=== PATIENT | male | born 1960 | race Caucasian/White ===

== ENCOUNTER → 2020-07-13 00:30 | Outpatient (CLI) | payer OTHER, SELFPAY ==
[2020-07-13 18:03] LABS: SARS-CoV-2 RNA PCR Negative
== END ==
PROVIDERS: PCP Family Medicine; Visit Provider Internal Medicine Gastroenterology
DX: Z01.812 Encounter for preprocedural laboratory examination (principal); Z20.822 Contact with and (suspected) exposure to COVID-19
CPT/HCPCS: C9803; U0003; U0005

== ENCOUNTER 2020-07-16 00:15 | Day surgery (SDC) | payer OTHER, SELFPAY ==
[2020-07-03 13:51] VITALS: BMI 37.4
--- NOTE | 2020-07-15 13:39 | WPDANESEPPF ---
Anes - Initial Pre Proc Eval Procedure: Operation Date: 07/16/20 07:30 Proposed Procedures p Screening Colonoscopy - Jairo Mejía DO Date/Time: 07/15/20 13:39 Surgeon: Jairo Mejía DO Pre Op Diagnosis: Neoplasm Screening Patient Data Age: 60 Gender: M Height: 5 ft 7 in Weight: 108.5 kg Allergies Allergy/AdvReac Type Severity Reaction Status Date / Time clindamycin Allergy Unknown Pruritic Verified 07/16/20 06:13 rash Home Medications Medication Instructions Recorded Confirmed Type albuterol sulfate 90 mcg/actuation 1 puff INHALATION Q4H PRN 05/10/19 07/03/20 History aerosol inhaler fluticasone propionate 50 2 spray NASAL DAILY 05/10/19 07/03/20 History mcg/actuation nasal spray,suspension atenolol [Tenormin] 50 mg PO DAILY 07/03/20 07/16/20 History diclofenac sodium 75 mg PO DAILY 07/03/20 07/16/20 History eszopiclone [Lunesta] 2 mg PO .qhs 07/03/20 07/16/20 History sildenafil [Viagra] 100 mg PO DAILY PRN 07/03/20 07/03/20 History Patient hx anesthesia problems: none Family hx anesthesia problems: none PMFSH Past Medical History Medical History (Updated 07/15/20 @ 13:39 by Rashid Gale MD) Essential (primary) hypertension Mitral valve prolapse ZITA on CPAP Family History Family History Mother Patient's mother is in good health Social History Social History Years smoked: 20 Smoking status: Light tobacco smoker Tobacco type: cigarettes Second hand tobacco smoke exposure: No Alcohol intake: never Substance use: never Substance use type: does not use Living arrangements: with family Gender identity (if verbalized by the patient): Male Sexual Orientation (if Verbalized by the Patient): Straight or Heterosexual Spiritual care concerns: No Anes - Eval Final PreProcedure Day of Procedure 07/15/20 13:39 Patient weight: obese Heart: regular rate and rhythm Lungs: clear to auscultation Airway: Mallampati scale class III Neurological: alert and oriented Last oral intake: >/= 8 hours ASA classification: III Emergent: no Anesthetic plan: proceed Anesthesia type and monitoring: general GIVS and standard monitoring Informed Consent: The patient's anesthetic plan and its attendant risks and benefits were discussed with the patient/family/POA. Questions were solicited and answers provided to the satisfaction of the patient/family/POA.
[2020-07-16 06:14] VITALS: BP 124/70; PULSE 77; RESP 18; TEMP 36.1; O2SAT 98
[2020-07-16] MEDS: LACTATED RINGERS 1,000 ML 150 ML IV CONT (06:22)
--- NOTE | 2020-07-16 07:26 | WPDGICN ---
GI Consult Note Consult date/time: 07/16/20 07:26 HPI: Reason for visit is colonoscopy. This very pleasant gentleman seen in consultation at the request of the primary physician. The patient was examined. Impression: Screening and surveillance colonoscopy. The patient has history adenomatous colon polyps. HTN. Obesity. ZITA. Recommendation: Colonoscopy. History: This very pleasant gentleman is here for colonoscopy. His GI review of systems negative. He is here for screening and surveillance colonoscopy. He has a history adenomatous colon polyps. Physical examination: General: very pleasant patient in no acute distress. HEENT: Head was normocephalic sclerae is clear mouth without masses neck was supple. Heart: Rate rhythm regular without S3 or S4. Lungs: CTA. Abdomen: Soft with no guarding or rigidity. Bowel sounds were active. Neurologic: Cranial nerves 2 through 12 intact. No focal defects. No clonus. Musculoskeletal system: Revealed no joint tenderness or swelling no muscle atrophy. Extremities: Reveal no significant edema. Skin: Warm and dry with normal turgor. Mental status: intact. Patient is alert and oriented. Review of Systems Review of Systems: All systems reviewed & are unremarkable except as noted in HPI and below PMFSH Past Medical History Medical History (Updated 07/16/20 @ 07:25 by Jairo Mejía DO) Adenomatous colon polyp HTN (hypertension) Obesity ZITA on CPAP Family History Family History Mother Patient's mother is in good health Social History Social History Years smoked: 20 Smoking status: Light tobacco smoker Tobacco type: cigarettes Second hand tobacco smoke exposure: No Alcohol intake: never Substance use: never Substance use type: does not use Living arrangements: with family Gender identity (if verbalized by the patient): Male Sexual Orientation (if Verbalized by the Patient): Straight or Heterosexual Spiritual care concerns: No Meds Home Medications and Allergies Home Medications Medication Instructions Recorded Confirmed Type albuterol sulfate 90 mcg/actuation 1 puff INHALATION Q4H PRN 05/10/19 07/03/20 History aerosol inhaler fluticasone propionate 50 2 spray NASAL DAILY 05/10/19 07/03/20 History mcg/actuation nasal spray,suspension atenolol [Tenormin] 50 mg PO DAILY 07/03/20 07/16/20 History diclofenac sodium 75 mg PO DAILY 07/03/20 07/16/20 History eszopiclone [Lunesta] 2 mg PO .qhs 07/03/20 07/16/20 History sildenafil [Viagra] 100 mg PO DAILY PRN 07/03/20 07/03/20 History Allergies Allergy/AdvReac Type Severity Reaction Status Date / Time clindamycin Allergy Unknown Pruritic Verified 07/16/20 06:13 rash Vital Signs Vital Signs - 24 hr 07/16/20 06:14 Temperature 36.1 C L Pulse Rate 77 Respiratory Rate 18 Blood Pressure 124/70 Pulse Oximetry 98
[2020-07-16 07:55] VITALS: BP 107/44; PULSE 67; RESP 19; O2SAT 95
[2020-07-16 08:05] VITALS: BP 129/74; PULSE 72; RESP 23; O2SAT 98
[2020-07-16 08:15] VITALS: BP 121/77; PULSE 62; RESP 21; O2SAT 98
== END 2020-07-16 08:22 | disposition home or self-care (01) ==
PROVIDERS: PCP Family Medicine; Visit Provider Internal Medicine Gastroenterology
PROC: 0DJD8ZZ Inspection of Lower Intestinal Tract, Via Natural or Artificial Opening Endoscopic (ICD-10-PCS; CPT 45378; principal; 2020-07-16 07:30)
DX: Z12.11 Encounter for screening for malignant neoplasm of colon (principal); K57.30 Diverticulosis of large intestine without perforation or abscess without bleeding; K63.89 Other specified diseases of intestine; K64.8 Other hemorrhoids; Z86.010 Personal history of colon polyps; I10 Essential (primary) hypertension; I34.1 Nonrheumatic mitral (valve) prolapse; G47.33 Obstructive sleep apnea (adult) (pediatric); E66.9 Obesity, unspecified; Z68.36 Body mass index [BMI] 36.0-36.9, adult; F17.210 Nicotine dependence, cigarettes, uncomplicated
CPT/HCPCS: 45380; 88305; C9803; J2704; J7120; U0003; U0005

== ENCOUNTER 2021-06-03 12:18 | Outpatient (CLI) | payer OTHER, SELFPAY ==
--- NOTE | ~2021-06-03 | MR_ITS ---
EXAMINATION: MR cervical spine wo con DATE: 06/03/2021 13:18 INDICATION: Neck pain. Right shoulder pain. TECHNIQUE: Magnetic resonance imaging (MRI) of the cervical spine was performed without intravenous c ontrast. Sequences included sagittal T2-weighted FSE, sagittal STIR FSE, sagittal T1-weighted FSE, ax ial MERGE, and axial T2-weighted FSE. COMPARISON: None FINDINGS: There is mild kyphosis of cervical spine. Vertebral body heights and intervertebral disc he ights are normal. The spinal cord signal intensity is normal. The following disc levels are specifica lly discussed: C2-C3: The disc does not extend beyond the endplate margin. There is mild left uncovertebral joint os teoarthritis. There is severe right and moderate left facet joint osteoarthritis. There is mild left neural foraminal stenosis. There is no central canal stenosis. C3-C4: The disc does not extend beyond the endplate margin. There is mild right and moderate left unc overtebral joint osteoarthritis. There is mild right and severe left facet joint osteoarthritis. Ther e is mild right and moderate left neural foraminal stenosis. There is no central canal stenosis. C4-C5: The disc is bulging. There is mild bilateral uncovertebral joint osteoarthritis. There is leo re right and mild left facet joint osteoarthritis. There is no neural foraminal stenosis. There is mi ld central canal stenosis with ventral indentation of the spinal cord. C5-C6: The disc is bulging. There is moderate bilateral uncovertebral joint osteoarthritis. There is no facet joint osteoarthritis. There is moderate right and mild left neural foraminal stenosis. There is mild central canal stenosis with ventral indentation of the spinal cord. C6-C7: The disc is bulging with superimposed left central extrusion. There is mild right and moderate left uncovertebral joint osteoarthritis. There is mild bilateral facet joint osteoarthritis. There i s mild left neural foraminal stenosis. There is mild central canal stenosis with ventral indentation of the spinal cord. C7-T1: The disc does not extend beyond the endplate margin. There is no uncovertebral joint osteoarth ritis. There is mild right and moderate left facet joint osteoarthritis. There is mild left neural fo raminal stenosis. There is no central canal stenosis. IMPRESSION: 1. Moderate cervical spondylosis. Reviewed, dictated and finalized at location A. 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
== END 2021-06-03 12:19 | disposition home or self-care (01) ==
PROVIDERS: PCP Family Medicine
DX: M47.813 Spondylosis without myelopathy or radiculopathy, cervicothoracic region (principal); M48.03 Spinal stenosis, cervicothoracic region
CPT/HCPCS: 72141

== ENCOUNTER 2021-09-16 14:12 | Outpatient (CLI) | payer OTHER, SELFPAY ==
--- NOTE | ~2021-09-16 | XR_ITS ---
XR lumbar spine 2-3V DATE: 09/16/2021 14:24 INDICATION: Lumbar radiculopathy TECHNIQUE: AP, lateral, coned lateral lumbosacral views COMPARISON: July 03, 2014 MRI lumbar spine 09/21/2009 lumbar spine FINDINGS: There is moderate degenerative disc disease and spurring at the lumbar interspaces and mode rately severe degenerative disc disease at L5-S1. The lumbar pedicles are intact. No fracture or bone destruction. There is degenerative change at the lower lumbar and lumbosacral apophyseal joints with associated mi nimal grade 1 anterolisthesis at L4-5. The sacroiliac joints are intact, with some degenerative spurring. Status post cholecystectomy. IMPRESSION: Multilevel degenerative disc disease, greatest at L5-S1 Degenerative change at the apophyseal joints with associated minimal grade 1 anterolisthesis at L4-5 Reviewed, dictated and finalized at location B. IMPRESSION: Multilevel degenerative disc disease, greatest at L5-S1 Degenerative change at the apophyseal joints with associated minimal grade 1 an terolisthesis at L4-5
== END 2021-09-16 14:13 | disposition home or self-care (01) ==
PROVIDERS: PCP Family Medicine; Visit Provider Nurse Practitioner Family
DX: M54.16 Radiculopathy, lumbar region (principal); M51.37 Other intervertebral disc degeneration, lumbosacral region
CPT/HCPCS: 72100

== ENCOUNTER 2021-09-28 14:23 | Outpatient (CLI) | payer OTHER, SELFPAY ==
--- NOTE | ~2021-09-28 | US_ITS ---
EXAMINATION: US venous doppler [facility] DATE: 09/28/2021 15:15 INDICATION: Pain in the left lower extremity. TECHNIQUE: Grayscale images without and with compression and Doppler images of the bilateral lower ex tremity veins were obtained. COMPARISON: None FINDINGS: The right common femoral vein, profunda (deep) femoral vein, femoral vein, popliteal vein, peroneal v ein, posterior tibial veins, and greater saphenous vein are patent. The left common femoral vein, profunda femoral vein, femoral vein, popliteal vein, peroneal vein, pos terior tibial veins, and greater saphenous vein are patent. 5.4 cm Rodrigez's cyst. IMPRESSION: 1. Patent bilateral lower extremity veins. No evidence of deep venous thrombosis Reviewed, dictated and finalized at location K. IMPRESSION: 1. Patent bilateral lower extremity veins. No evidence of deep venous thrombos is
--- NOTE | ~2021-09-28 | XR_ITS ---
XR knee LT min 4V 09/28/2021 14:54 Indication: Left knee pain Procedure: 4 views left knee Comparison: No prior studies for comparison. Findings: There is an ossific fragment along the superior margin the patella, suspicious for avulsion fracture. Small knee effusion. Prominent tibial tuberosity. No significant joint space narrowing. Impression: 1: Possible avulsion fracture. Superior margin of the patella. Correlate for point tenderness. 2: Small knee effusion. Reviewed, dictated and finalized at location A. Impression: 1: Possible avulsion fracture. Superior margin of the patella. Correlate for po int tenderness. 2: Small knee effusion.
== END 2021-09-28 14:24 | disposition home or self-care (01) ==
PROVIDERS: PCP Family Medicine; Visit Provider Physician Assistant
DX: M25.462 Effusion, left knee (principal)
CPT/HCPCS: 73564; 93970

== ENCOUNTER → 2021-10-21 07:08 | Outpatient (CLI) | payer OTHER, SELFPAY ==
--- NOTE | ~2021-10-21 | MR_ITS ---
EXAMINATION: MR knee LT wo con DATE: 10/21/2021 07:53 INDICATION: Left knee pain TECHNIQUE: Magnetic resonance imaging (MRI) of the left knee was performed without intravenous contra st. Sequences included coronal PD-weighted FSE, coronal PD-weighted FS FSE, sagittal T2-weighted FSE , sagittal PD-weighted FS FSE and axial PD weighted fat saturated FSE. COMPARISON: None. FINDINGS: Medial compartment: Near full-thickness radial tear at the posterior horn of the medial meniscus. Partial-thickness carti rosetta loss with relatively smooth chondral surface which is most prominent along the central weightbea ring medial femoral condyle. Lateral compartment: Lateral meniscus is normal. Articular cartilage is normal. Patellofemoral compartment: Deep chondral ulceration in places reaching full thickness at the lateral patellar facet and apical r idge with irregularity to the articular cortex and scattered subarticular edema-like and cystlike pilo nges. Mild partial-thickness cartilage loss along the lateral trochlea with more focal small region o f deep chondral ulceration with subtle subarticular edema-like signal change at the superolateral asp ect of the lateral trochlea. Small region of partial-thickness chondral fissuring without degenerativ e subchondral changes at the inferolateral aspect of the medial trochlea. Ligaments and tendons: Anterior and posterior cruciate ligaments are normal. The medial collateral ligament and fibular rafiq ateral ligament complex are normal. Mild tendinopathy/enthesopathy at the osseous insertions of the p atellar and quadriceps tendons with small enthesophytes along the anterior patella and at the tibial insertion of the distal patellar tendon. The visualized medial and lateral hamstring tendons as well as the iliotibial band are normal. Fluid: Small to moderate-sized left knee joint effusion with mild synovitis at the suprapatellar pouch. Omid tional mild synovitis of a small Rodrigez's cyst. No loose osteochondral bodies identified. Osseous/other: Bone alignment is normal. No fracture or pathologic marrow replacing process. IMPRESSION: 1. Near full-thickness radial tear at the posterior horn of the medial meniscus. 2. Moderate osteoarthritis with high-grade chondral malacia in the patellofemoral compartment and mil d osteoarthritis with moderate grade chondromalacia in the medial compartment. 3. Small to moderate-sized left knee joint effusion with small Rodrigez's cyst. 4. Chronic mild patellar tendon and distal quadriceps tendon enthesopathy. Reviewed, dictated and finalized at location A. IMPRESSION: 1. Near full-thickness radial tear at the posterior horn of the medial meniscus . 2. Moderate osteoarthritis with high-grade chondral malacia in the patellofemor al compartment and mild osteoarthritis with moderate grade chondromalacia in th e medial compartment. 3. Small to moderate-sized left knee joint effusion with small Rodrigez's cyst. 4. Chronic mild patellar tendon and distal quadriceps tendon enthesopathy.
== END ==
PROVIDERS: PCP Family Medicine; Visit Provider Orthopaedic Surgery
DX: M17.12 Unilateral primary osteoarthritis, left knee (principal); M25.462 Effusion, left knee; M71.22 Synovial cyst of popliteal space [Baker], left knee
CPT/HCPCS: 73721

== ENCOUNTER 2023-06-29 11:49 | Outpatient (CLI) | payer OTHER, SELFPAY ==
--- NOTE | ~2023-06-29 | XR_ITS ---
Clinical Indication: Cough PA and lateral views of the chest: Comparison: 08/15/2016 Findings: The lungs are clear, without evidence of focal consolidation or pleural effusion. Cardiome diastinal silhouette is within normal limits. Bones and soft tissues are unremarkable. Impression: Normal chest. Reviewed, dictated and finalized at [facility]. 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
== END 2023-06-29 11:50 | disposition home or self-care (01) ==
LOC: ANHIMG 11:50
PROVIDERS: PCP Family Medicine; Visit Provider Physician Assistant Medical
DX: R05.9 Cough, unspecified (principal); R09.89 Other specified symptoms and signs involving the circulatory and respiratory systems
CPT/HCPCS: 71046

== ENCOUNTER 2025-02-10 10:11 | Outpatient (CLI) | payer MEDICARE, SELFPAY ==
--- NOTE | ~2025-02-10 | XR_ITS ---
EXAMINATION: XR knee LT 3V, 02/10/2025 10:18 CDT HISTORY: R52 - Pain, unspecified COMPARISON: No comparisons available. Findings: No acute fracture or malalignment. Moderate to severe tricompartmental degenerative changes Soft tissues unremarkable. Impression: No acute fracture or malalignment. Reviewed, dictated and finalized at location P. Impression: No acute fracture or malalignment.
== END 2025-02-10 10:12 | disposition home or self-care (01) ==
LOC: MICIMG 10:14
PROVIDERS: PCP Family Medicine; Visit Provider Orthopaedic Surgery
DX: R52 Pain, unspecified (principal)
CPT/HCPCS: 73562